=== PATIENT | female | born 1940 | race Caucasian/White ===

== ENCOUNTER 2017-03-31 11:38 | Emergency (ER) | payer MEDICARE ==
[2017-03-31 12:41] VITALS: BP 125/65
--- NOTE | 2017-03-31 13:51 | RAD ---
Indication: Right wrist injury 3 views of the wrist demonstrates no fracture. No other bone or joint abnormality is identified. Degenerative changes of the radiocarpal joint are noted. IMPRESSION: NO FRACTURE OF THE WRIST IS NOTED.
--- NOTE | 2017-03-31 13:54 | RAD ---
Indication: Right elbow pain. 4 views of the right elbow demonstrates a joint effusion. Anterior fat pad sign is noted. No definite fracture is noted. Osteophyte may be arising from the coronoid process. IMPRESSION: Question of osteophyte arising from the coronoid process.
--- NOTE | 2017-03-31 14:11 | RAD ---
Indication: RIGHT shoulder pain post fall. Comparison: No relevant prior exams available on the [facility] for comparison. Technique: Internal rotation AP, external rotation Grashey, scapular Y, axillary views RIGHT shoulder Report: Normal acromioclavicular and glenohumeral joint alignment. No fracture evident. Moderately severe acromioclavicular and glenohumeral joint osteophytosis with associated subchondral sclerosis at the glenohumeral joint. Large inferior acromial bone spur. Unremarkable soft tissue contours. IMPRESSION: Negative for fracture or malalignment. Osteoarthritis.
--- NOTE | 2017-03-31 14:56 | UC ---
Upper Extremity HPI - HPI Summary HPI Summary: TRIPPED ON RAMP 9:30 YESTERDAY. PAIN IN RIGHT WRIST. ALSO PAIN IN ELBOW AND SHOULDER. NO NECK PAIN. NO LOC. NO FACIAL INJURY. - History of Current Complaint Chief Complaint: UCUpperExtremity Stated Complaint: ARM INJURY Time Seen by Provider: 03/31/17 12:49 Hx Obtained From: Patient, Family/Administrative Services Director Onset/Duration: Sudden Onset, Lasting Hours, Still Present Severity Initially: Moderate Severity Currently: Mild Pain Intensity: 2 Pain Scale Used: 0-10 Numeric Location Of Pain: Is Discrete @ Character: Sharp Aggravating Factor(s): Movement Alleviating Factor(s): Nothing Associated Signs And Symptoms: Positive: Negative - Risk Factors Non-Orthopedic Risk Factor: Negative DVT Risk Factors: Negative Septic Arthritis Risk Factor: Negative - Allergies/Home Medications Allergies/Adverse Reactions: Allergies Allergy/AdvReac Type Severity Reaction Status Date / Time Clarithromycin [From Biaxin] Allergy Severe Swelling Verified 03/31/17 12:33 Diclofenac [From Arthrotec] Allergy Severe Swelling Verified 03/31/17 12:33 Misoprostol [From Arthrotec] Allergy Severe Swelling Verified 03/31/17 12:33 Polyethylene Glycol Allergy Severe Swelling Verified 03/31/17 12:33 [From MiraLax] Terbinafine and Related Allergy Severe Swelling Verified 03/31/17 12:33 Of Face,Lips,& Throat Iodinated Contrast Media Allergy Intermediate Hives Verified 03/31/17 12:33 [IV CONTRAST DYE] BEES Allergy Severe Swelling Uncoded 03/31/17 12:33 Of Face,Lips,& Throat PMH/Surg Hx/FS Hx/Imm Hx Previously Healthy: Yes - Surgical History Surgical History: Yes Surgery Procedure, Year, and Place: [place] [place] CHOLECYSTECTOM[place],BELLY BUTTON HERNIA,PARTIAL HYSTERECTOMY/[place] [place] [id number]. 2002-T[place] RIGHT [place] [place]IA [place] [facility] [place] 2004-INFECTED MESH-TOOK OUT SOME [place]ESH[place] [place]. 2009-TOTAL LEFT KNEE RE[place]ACEMENT[place] [place] - Family History Known Family History: Positive: Cardiac Disease - Social History Occupation: Retired Lives: With Family Alcohol Use: None Substance Use Type: None Smoking Status (MU): Never Smoked Tobacco Have You Smoked in the Last Year: No - Immunization History Most Recent Influenza Vaccination: 2016 Most Recent Tetanus Shot: UTD Most Recent Pneumonia Vaccination: 2014 Review of Systems Constitutional: Negative Skin: Negative Eyes: Negative ENT: Negative Respiratory: Negative Cardiovascular: Negative Gastrointestinal: Negative Genitourinary: Negative Motor: Negative Neurovascular: Negative Musculoskeletal: Arthralgia, Myalgia Neurological: Negative Psychological: Negative All Other Systems Reviewed And Are Negative: Yes Physical Exam Triage Information Reviewed: Yes Appearance: Well-Appearing, No Pain Distress, Well-Nourished, Obese Vital Signs: Initial Vital Signs Temp 98.3 F 03/31/17 12:35 Pulse 77 03/31/17 12:35 Resp 19 03/31/17 12:35 BP 125/65 03/31/17 12:35 Pulse Ox 98 03/31/17 12:35 Vital Signs Reviewed: Yes Eye Exam: Normal ENT Exam: Normal Dental Exam: Normal Neck exam: Normal Neck: Positive: Supple, Nontender, No Lymphadenopathy Respiratory Exam: Normal Respiratory: Positive: Chest non-tender, Lungs clear, Normal breath sounds, No respiratory distress, No accessory muscle use Cardiovascular Exam: Normal Cardiovascular: Positive: RRR, No Murmur, Pulses Normal Abdominal Exam: Normal Musculoskeletal: Positive: Strength Intact, ROM Intact, No Edema, Other: - PAIN RIGHT WRIST, ELBOW, SHOUDLER Neurological Exam: Normal Psychological Exam: Normal Skin Exam: Normal Upper Extremity Course/Dx - Differential Dx/Diagnosis Differential Diagnosis/HQI/PQRI: Fracture (Closed), Strain, Sprain Provider Diagnoses: RIGHT WRIST SPRAIN; RIGHT SHOUDLER CONTUSION, RIGHT SHOULDER PAIN Discharge - Discharge Plan Condition: Stable Disposition: HOME Patient Education Materials: Osteoarthritis (ED), Contusion in Adults (ED), Elbow Sprain (ED), Arthralgia (ED), Wrist Sprain (ED) Referrals: Orion Whitney MD [Medical Doctor] - Vicenta Ellison MD [Primary Care Provider] -
== END 2017-03-31 14:33 | disposition home or self-care (01) ==
LOC: UCEAST 11:38
DX: S63.501A Unspecified sprain of right wrist, initial encounter (principal); S40.011A Contusion of right shoulder, initial encounter; M25.511 Pain in right shoulder; W18.40XA Slipping, tripping and stumbling without falling, unspecified, initial encounter; Y93.9 Activity, unspecified; Y92.9 Unspecified place or not applicable; Y99.9 Unspecified external cause status
CPT/HCPCS: 99213; G0463

== ENCOUNTER 2018-02-19 13:54 | Emergency (ER) | payer MEDICARE ==
[2018-02-19 14:13] VITALS: BP 99/50
--- NOTE | 2018-02-19 15:25 | UC ---
Minor Trauma HPI - HPI Summary HPI Summary: 77 yo female tripped and fell forward about 48 hours ago She complains of right great foot pain She also hit her head (no LOC) but has no BUSH She injured her nose- no epistaxis bruise left hand has bilat knee replacements no knee pain - History of Current Complaint Chief Complaint: UCLowerExtremity Stated Complaint: FOOT AND HEAD INJURY Time Seen by Provider: 02/19/18 15:10 Hx Obtained From: Patient Onset/Duration: Sudden Onset Onset Of Pain: Immediate Severity Initially: Severe Severity Currently: Severe Pain Intensity: 10 - foot pain with with wt bearing Pain Scale Used: 0-10 Numeric Mechanism Of Injury: Fall From A Standing Position Aggravating Factor(s): Ambulation Alleviating Factor(s): Elevation, Ice, Rest Associated Signs And Symptoms: Positive: Ecchymosis, Swelling - Allergies/Home Medications Allergies/Adverse Reactions: Allergies Allergy/AdvReac Type Severity Reaction Status Date / Time clarithromycin [From Biaxin] Allergy Swelling Verified 02/19/18 14:15 diclofenac [From Arthrotec] Allergy Swelling Verified 02/19/18 14:16 iodine Allergy Swelling Verified 02/19/18 14:16 misoprostol [From Arthrotec] Allergy Swelling Verified 02/19/18 14:16 polyethylene glycol 3350 Allergy Swelling Verified 02/19/18 14:16 [From Miralax] PMH/Surg Hx/FS Hx/Imm Hx Previously Healthy: Yes Cardiovascular History: Hypertension Respiratory History: COPD, Bronchitis - Surgical History Surgical History: Yes Surgery Procedure, Year, and Place: 1968-TUBAL LIGATION[place] [place]. 1981 CHOLECYSTECTOMY,BELLY BUTTON HERNIA,PARTIAL HYSTERECTOMY/TOTAL HYSTERCTOMY[place] [place]. [id number]. 2002-TOTAL RIGHT KNEE REPLACEMNT[place] [place] RIGHT HIP REPLACED-. 2003-HERNIA REPAIR-[facility] [place]. 2004-INFECTED MESH-TOOK OUT SOME MESH-[facility] [place]. 2009-TOTAL LEFT KNEE REPLACEMENT[place] [place] - Family History Known Family History: Positive: Cardiac Disease, Hypertension - Social History Alcohol Use: None Substance Use Type: None Smoking Status (MU): Never Smoked Tobacco Have You Smoked in the Last Year: No - Immunization History Most Recent Influenza Vaccination: 2016 Most Recent Tetanus Shot: UTD Most Recent Pneumonia Vaccination: 2013 Review of Systems Constitutional: Negative Skin: Bruising Eyes: Negative ENT: Negative Respiratory: Negative Cardiovascular: Negative Gastrointestinal: Negative Genitourinary: Negative Motor: Negative Neurovascular: Negative Musculoskeletal: Arthralgia Neurological: Negative Psychological: Negative Is Patient Immunocompromised?: No All Other Systems Reviewed And Are Negative: Yes Physical Exam Triage Information Reviewed: Yes Appearance: Well-Appearing, No Pain Distress, Well-Nourished Vital Signs: Initial Vital Signs Temp 98.6 F 02/19/18 14:09 Pulse 76 02/19/18 14:09 Resp 18 02/19/18 14:09 BP 99/50 02/19/18 14:09 Pulse Ox 100 02/19/18 14:09 Vital Signs Reviewed: Yes Eyes: Positive: Conjunctiva Clear ENT: Positive: Hearing grossly normal, Uvula midline, Other - no obvious deformity of nose/no septal hematoma/ slight burising over bridge of nose. Negative: Nasal congestion, Nasal drainage, Tonsillar swelling, Tonsillar exudate, Trismus, Muffled voice, Hoarse voice Neck: Positive: Supple, Nontender, No Lymphadenopathy Respiratory: Positive: Lungs clear, Normal breath sounds, No respiratory distress, No accessory muscle use Cardiovascular: Positive: RRR, No Murmur Neurological: Positive: Alert Psychological Exam: Normal Diagnostics - Radiology No standard instances Xray Interpretation: Positive (See Comments) - POSSIBLE NONDISPLACED FRACTURE OF THE DISTAL FIFTH METATARSAL Radiology Interpretation Completed By: Radiologist Minor Trauma Course/Dx - Differential Dx/Diagnosis Provider Diagnoses: POSSIBLE NONDISPLACED FRACTURE OF THE DISTAL FIFTH METATARSAL of right foot Discharge - Sign-Out/Discharge Documenting (check all that apply): Discharge/Admit/Transfer - Discharge Plan Condition: Stable Disposition: HOME Patient Education Materials: Foot Fracture in Adults (ED) Referrals: Vicenta Ellison MD [Primary Care Provider] - Additional Instructions: Possible foot fracture (Distal 5th metacarpal) CAM boot see your orthopedist (Dr. Serna) - Billing Disposition and Condition Condition: STABLE Disposition: Home
--- NOTE | 2018-02-19 15:55 | RAD ---
INDICATION: Right foot injury. TECHNIQUE: 3 views of the right foot were obtained. FINDINGS: The bones appear osteopenic. There is diffuse soft tissue swelling with more focal soft tissue swelling adjacent to the fifth metatarsal phalangeal joint. There is mild cortical irregularity in the distal metaphysis of the fifth metatarsal possibly representing a nondisplaced fracture. No other fractures are seen. There are prominent calcified heel spurs and note is made of vascular calcifications. IMPRESSION: POSSIBLE NONDISPLACED FRACTURE OF THE DISTAL FIFTH METATARSAL RECOMMEND CLINICAL CORRELATION FOR POINT TENDERNESS.
== END 2018-02-19 16:25 | disposition home or self-care (01) ==
LOC: UCEAST 13:54
DX: M79.671 Pain in right foot (principal); S60.222A Contusion of left hand, initial encounter; I10 Essential (primary) hypertension; J44.9 Chronic obstructive pulmonary disease, unspecified; Z88.8 Allergy status to other drugs, medicaments and biological substances; Z88.1 Allergy status to other antibiotic agents; Z88.0 Allergy status to penicillin; W01.0XXA Fall on same level from slipping, tripping and stumbling without subsequent striking against object, initial encounter; Y92.9 Unspecified place or not applicable; Z96.653 Presence of artificial knee joint, bilateral
CPT/HCPCS: 99212; G0463

== ENCOUNTER 2018-07-13 09:05 | Emergency (ER) | payer MEDICARE ==
[2018-07-13] MEDS ORDERED: Albuterol/Ipratropium NEB.SOL* Albuterol 2.5 MG/Ipratropium 0.5 MG 3 ML INH ONE (10:06)
[2018-07-13 10:22] LABS: ABS Basophils 0.1 10^3/ul (0-0.2); ABS Eosinophils 0.3 10^3/ul (0-0.6); ABS Lymphocytes 1.7 10^3/ul (1.0-4.8); ABS Monocytes 0.7 10^3/ul (0-0.8); ABS Neutrophils 4.7 10^3/ul (1.5-7.7); ABS Nucleated RBC 0 10^3/ul; Eosinophil % 4.4 % (0-6); Hematocrit 44 % (35-47); Lymphocyte % 22.5 % (25-47); Mean Corpuscular HGB Conc 34 g/dl (31-36); Mean Corpuscular Hemoglobin 29 pg (27-31); Mean Corpuscular Volume 86 fL (80-97); Mean Platelet Volume 7.8 fL (7.4-10.4); Nucleated Red Blood Cells % 0.1; Platelet Count 207 10^3/ul (150-450); Red Blood Count 5.09 10^6/ul (4.00-5.40); Red Cell Distribution Width 14 % (10.5-15); White Blood Count 7.4 10^3/ul (3.5-10.8)
[2018-07-13 10:29] LABS: INR 1.03 (0.77-1.02)
[2018-07-13 10:51] LABS: Urine Appearance Cloudy; Urine Blood Negative (Negative); Urine Color Yellow; Urine Ketones Negative (Negative); Urine Protein Negative (Negative); Urine Specific Gravity 1.013 (1.010-1.030); Urine Urobilinogen Negative (Negative)
--- NOTE | 2018-07-13 13:12 | ED ---
Shortness of Breath - HPI Summary HPI Summary: Patient is a 78-year-old female with a history of COPD presenting to the ED with worsening shortness of breath over the past few days. She states she had these episodes 4 weeks ago and was placed on antibiotics. She subsequently had a UTI and was placed on another short course of antibiotics 5 days. She states she felt somewhat better but then declined again over the past few days. She states she would not come in, however she was at the wound clinic this morning and the wound clinic sent her here after hearing a productive cough. She does endorse a productive cough of the past few days with green and yellow sputum. She endorses shortness of breath only with exertion. She states she has shortness of breath at baseline, but notices this has been worse. Denies any fevers, sweats, chills. Denies any chest pain, back pain, abdominal pain, or urinary symptoms at this time. She states she's been continuing on her at home COPD medications which have been helping. On arrival her oxygen sat is 94% . - History of Current Complaint Chief Complaint: EDShortnessOfBreath Time Seen by Provider: 07/13/18 09:21 Hx Obtained From: Patient Onset/Duration: Sudden Onset Timing: Constant Current Severity: Moderate Dyspnea At: Exertion Aggrevating Factors: Movement Alleviating Factors: Bronchodilators, EMS Tx, Oxygen - Allergy/Home Medications Allergies/Adverse Reactions: Allergies Allergy/AdvReac Type Severity Reaction Status Date / Time clarithromycin [From Biaxin] Allergy Swelling Verified 07/13/18 09:12 diclofenac [From Arthrotec] Allergy Swelling Verified 07/13/18 09:12 iodine Allergy Swelling Verified 07/13/18 09:12 misoprostol [From Arthrotec] Allergy Swelling Verified 07/13/18 09:12 polyethylene glycol 3350 Allergy Swelling Verified 07/13/18 09:12 [From Miralax] seafood Allergy Rash Uncoded 07/13/18 09:12 Home Medications: Home Medications Acetaminophen TAB* [Tylenol TAB*] 325 mg PO Q4H PRN 07/13/18 [History Confirmed 07/13/18] Ascorbic Acid TAB* [Vitamin C TAB*] 1,000 mg PO DAILY 07/13/18 [History Confirmed 07/13/18] Budesonide/Formote 160/4.5(NF) [Symbicort 160/4.5 (NF)] 1 puff INH BID 07/13/18 [History Confirmed 07/13/18] Calcium Carbonate/Vitamin D3 [Calcium 1000 + D] 1 tab PO DAILY 07/13/18 [ History Confirmed 07/13/18] Calcium Polycarbophil TAB* [Fibercon TAB*] 625 mg PO DAILY 07/13/18 [History Confirmed 07/13/18] Clotrimazole/Betamethasone* [Lotrisone Cream*] 1 applic TOPICAL BID PRN [History Confirmed 07/13/18] Ibuprofen TAB* [Advil TAB*] 400 mg PO DAILY PRN 07/13/18 [History Confirmed 01/23] Ipratropium 0.5MG/2.5ML NEB* [Atrovent 0.5 MG NEB.VEDA*] 0.5 mg INH Q6H PRN 07/13 [History Confirmed 07/13/18] Lactobacillus Acidophilus [Acidophilus Lactobacillus] 1 cap PO DAILY 07/13/18 [ History Confirmed 07/13/18] Multivitamins/Minerals TAB* [Theragran/minerals TAB*] 1 tab PO DAILY 07/13/18 [ History Confirmed 07/13/18] [place]-3 Fatty Acids (Nf) [Fish Oil (NF)] 1,000 mg PO DAILY 07/13/18 [History Confirmed 07/13/18] Omeprazole CAP* [Prilosec CAP* 20 MG] 20 mg PO DAILY 07/13/18 [History Confirmed 07/13/18] Vitamin B Complex CAP* [B Complex CAP*] 1 cap PO DAILY 07/13/18 [History Confirmed 07/13/18] guaiFENesin ER TAB [Mucinex*] 600 mg PO BID PRN 07/13/18 [History Confirmed 01/23] PMH/Surg Hx/FS Hx/Imm Hx Previously Healthy: Yes Endocrine/Hematology History: Denies: Hx Diabetes, Hx Thyroid Disease Cardiovascular History: Reports: Hx Hypertension Respiratory History: Reports: Hx Asthma, Hx Sleep Apnea - ? Denies: Hx Chronic Obstructive Pulmonary Disease (COPD) GI History: Reports: Hx Gastroesophageal Reflux Disease, Hx Irritable Bowel, Other GI Disorders - UMBILICAL HERNIA Denies: Hx Ulcer History: Denies: Hx Renal Disease Musculoskeletal History: Reports: Hx Arthritis - GENERALIZED OSTEOARTHRITIS, Hx Tendonitis - BILAT. HANDS Denies: Hx Rheumatoid Arthritis Sensory History: Reports: Hx Cataracts - REMOVED, Hx Contacts or Glasses Denies: Hx Hearing Aid Opthamlomology History: Reports: Hx Cataracts - REMOVED, Hx Contacts or Glasses Psychiatric History: Denies: Hx Anxiety, Hx Attention Deficit Hyperactivity Disorder, Hx Eating Disorder, Hx Depression, Hx Panic Disorder, Hx Post Traumatic Stress Disorder, Hx Inpatient Treatment, Hx Schizophrenia, Hx Bipolar Disorder, Hx Suicide Attempt, Hx of Violent Episodes Against Others, Hx Substance Abuse, Other Psychiatric Issues/Disorders - Surgical History Surgery Procedure, Year, and Place: 1968-[place] [place] [facility] [place] CHOLECYSTECTOMY,BELLY BUTTON HERNIA,PARTIAL HYSTERECTOMY/TOTAL HYSTERCTOMY[place] [place] [facility] [place]. [id number]. 2002-TOTAL RIGHT KNEE REPLACEMNT[place] [place] [facility] [place]-. 2003-HERNIA REPAIR[place] [place] [facility] [place]. 2004-INFECTED MESH-TOOK OUT SOME MESH-[facility] [place] [facility] [place]. 2009-TOTAL LEFT KNEE REPLACEMENT[place] [place] [facility] [place] Hx Anesthesia Reactions: No - Immunization History Hx Pertussis Vaccination: No Immunizations Up to Date: Yes Infectious Disease History: No Infectious Disease History: Denies: Hx Clostridium Difficile, Hx Hepatitis, Hx Human Immunodeficiency Virus (HIV), Hx Shingles, Hx Tuberculosis, Hx Known/Suspected VRE, Hx Known/ Suspected VRSA, History Other Infectious Disease, Traveled Outside the [place] in Last 30 Days - Family History Known Family History: Positive: Cardiac Disease, Hypertension - Social History Occupation: Unemployed Lives: With Family Alcohol Use: Rare Hx Substance Use: No Substance Use Type: Reports: None Hx Tobacco Use: No Smoking Status (MU): Never Smoked Tobacco Have You Smoked in the Last Year: No Review of Systems Constitutional: Negative Negative: Fever, Chills, Fatigue, Skin Diaphoresis Negative: Palpitations, Chest Pain Positive: Shortness Of Breath, Cough - with production Negative: Abdominal Pain, Vomiting, Diarrhea, Nausea Genitourinary: Negative Positive: no symptoms reported, see HPI Negative: Rash, Bruising Negative: Headache Psychological: Normal All Other Systems Reviewed And Are Negative: Yes Physical Exam Triage Information Reviewed: Yes Vital Signs On Initial Exam: Initial Vitals Temp Pulse Resp BP Pulse Ox 97.8 F 74 16 88/43 94 07/13/18 09:06 07/13/18 09:06 07/13/18 09:06 07/13/18 09:06 07/13/18 09:06 Vital Signs Reviewed: Yes Appearance: Positive: Well-Appearing, Well-Nourished Skin: Positive: Skin Color Reflects Adequate Perfusion Head/Face: Positive: Normal Head/Face Inspection Eyes: Positive: Normal, RENA, Conjunctiva Clear Neck: Positive: Supple, No Lymphadenopathy Respiratory/Lung Sounds: Positive: Rhonchi - bilateral lower lung bases - cough with production - green and yellow sputum Cardiovascular: Positive: RRR, Pulses are Symmetrical in both Upper and Lower Extremities Musculoskeletal: Positive: Normal, Strength/ROM Intact Neurological: Positive: Sensory/Motor Intact, Alert, Oriented to Person Place, Time, Speech Normal Psychiatric: Positive: Normal, Affect/Mood Appropriate AVPU Assessment: Alert Diagnostics - Vital Signs Vital Signs Temp Pulse Resp BP Pulse Ox 07/13/18 12:27 84 20 131/43 93 07/13/18 11:56 92 22 119/56 91 07/13/18 11:26 98 16 131/60 93 07/13/18 11:00 96 21 91 07/13/18 10:56 83 24 118/58 93 07/13/18 10:33 86 21 127/59 94 07/13/18 10:26 78 25 108/41 93 07/13/18 10:17 75 14 94 07/13/18 09:56 78 23 104/54 91 07/13/18 09:26 72 21 111/57 96 07/13/18 09:23 68 95 07/13/18 09:06 97.8 F 74 16 88/43 94 - Laboratory Lab Results: Lab Results 07/13/18 07/13/18 07/13/18 Range/Units 10:15 10:15 10:15 WBC 7.4 (3.5-10.8) 10^3/ul RBC 5.09 (4.00-5.40) 10^6/ul Hgb 15.0 (12.0-16.0) g/dl Hct 44 (35-47) % MCV 86 (80-97) fL MCH 29 (27-31) pg MCHC 34 (31-36) g/dl RDW 14 (10.5-15) % Plt Count 207 (150-450) 10^3/ul MPV 7.8 (7.4-10.4) fL Neut % (Auto) 63.2 (38-83) % Lymph % (Auto) 22.5 L (25-47) % [place] % (Auto) 9.1 H (0-7) % Eos % (Auto) 4.4 (0-6) % Baso % (Auto) 0.8 (0-2) % Absolute Neuts (auto) 4.7 (1.5-7.7) 10^3/ul Absolute Lymphs (auto) 1.7 (1.0-4.8) 10^3/ul Absolute Monos (auto) 0.7 (0-0.8) 10^3/ul Absolute Eos (auto) 0.3 (0-0.6) 10^3/ul Absolute Basos (auto) 0.1 (0-0.2) 10^3/ul Absolute Nucleated RBC 0 10^3/ul Nucleated RBC % 0.1 INR (Anticoag Therapy) 1.03 H (0.77-1.02) Sodium 138 (135-145) mmol/L Potassium 3.5 (3.5-5.0) mmol/L Chloride 103 (101-111) mmol/L Carbon Dioxide 27 (22-32) mmol/L Anion Gap 8 (2-11) mmol/L BUN 13 (6-24) mg/dL Creatinine 0.76 (0.51-0.95) mg/dL Est GFR ( Amer) 89.5 (>60) Est GFR (Non-Af Amer) 74.0 (>60) BUN/Creatinine Ratio 17.1 (8-20) Glucose 112 H (70-100) mg/dL Lactic Acid (0.5-2.0) mmol/L Calcium 9.0 (8.6-10.3) mg/dL Total Bilirubin 0.60 (0.2-1.0) mg/dL AST 20 (13-39) U/L ALT 15 (7-52) U/L Alkaline Phosphatase 79 (34-104) U/L CK-MB (CK-2) 1.9 (0.6-6.3) ng/mL Troponin I 0.12 H* (<0.04) ng/mL C-Reactive Protein 19.01 H (<8.01) mg/L B-Natriuretic Peptide (<=100) pg/mL Total Protein 7.1 (6.4-8.9) g/dL Albumin 3.5 (3.2-5.2) g/dL Globulin 3.6 (2-4) g/dL Albumin/Globulin Ratio 1.0 (1-3) Urine Color Urine Appearance Urine pH (5-9) Ur Specific [place] (1.010-1.030) Urine Protein (Negative) Urine Ketones (Negative) Urine Blood (Negative) Urine Nitrate (Negative) Urine Bilirubin (Negative) Urine Urobilinogen (Negative) Ur Leukocyte Esterase (Negative) Urine Glucose (Negative) Urine Ascorbic Acid (Negative) 07/13/18 07/13/18 07/13/18 Range/Units 10:15 10:15 10:36 WBC (3.5-10.8) 10^3/ul RBC (4.00-5.40) 10^6/ul Hgb (12.0-16.0) g/dl Hct (35-47) % MCV (80-97) fL MCH (27-31) pg MCHC (31-36) g/dl RDW (10.5-15) % Plt Count (150-450) 10^3/ul MPV (7.4-10.4) fL Neut % (Auto) (38-83) % Lymph % (Auto) (25-47) % [place] % (Auto) (0-7) % Eos % (Auto) (0-6) % Baso % (Auto) (0-2) % Absolute Neuts (auto) (1.5-7.7) 10^3/ul Absolute Lymphs (auto) (1.0-4.8) 10^3/ul Absolute Monos (auto) (0-0.8) 10^3/ul Absolute Eos (auto) (0-0.6) 10^3/ul Absolute Basos (auto) (0-0.2) 10^3/ul Absolute Nucleated RBC 10^3/ul Nucleated RBC % INR (Anticoag Therapy) (0.77-1.02) Sodium (135-145) mmol/L Potassium (3.5-5.0) mmol/L Chloride (101-111) mmol/L Carbon Dioxide (22-32) mmol/L Anion Gap (2-11) mmol/L BUN (6-24) mg/dL Creatinine (0.51-0.95) mg/dL Est GFR ( Amer) (>60) Est GFR (Non-Af Amer) (>60) BUN/Creatinine Ratio (8-20) Glucose (70-100) mg/dL Lactic Acid 0.8 (0.5-2.0) mmol/L Calcium (8.6-10.3) mg/dL Total Bilirubin (0.2-1.0) mg/dL AST (13-39) U/L ALT (7-52) U/L Alkaline Phosphatase (34-104) U/L CK-MB (CK-2) (0.6-6.3) ng/mL Troponin I (<0.04) ng/mL C-Reactive Protein (<8.01) mg/L B-Natriuretic Peptide 22 (<=100) pg/mL Total Protein (6.4-8.9) g/dL Albumin (3.2-5.2) g/dL Globulin (2-4) g/dL Albumin/Globulin Ratio (1-3) Urine Color Yellow Urine Appearance Cloudy Urine pH 6.0 (5-9) Ur Specific [place] 1.013 (1.010-1.030) Urine Protein Negative (Negative) Urine Ketones Negative (Negative) Urine Blood Negative (Negative) Urine Nitrate Negative (Negative) Urine Bilirubin Negative (Negative) Urine Urobilinogen Negative (Negative) Ur Leukocyte Esterase Negative (Negative) Urine Glucose Negative (Negative) Urine Ascorbic Acid * A (Negative) 07/13/18 Range/Units 12:05 WBC (3.5-10.8) 10^3/ul RBC (4.00-5.40) 10^6/ul Hgb (12.0-16.0) g/dl Hct (35-47) % MCV (80-97) fL MCH (27-31) pg MCHC (31-36) g/dl RDW (10.5-15) % Plt Count (150-450) 10^3/ul MPV (7.4-10.4) fL Neut % (Auto) (38-83) % Lymph % (Auto) (25-47) % [place] % (Auto) (0-7) % Eos % (Auto) (0-6) % Baso % (Auto) (0-2) % Absolute Neuts (auto) (1.5-7.7) 10^3/ul Absolute Lymphs (auto) (1.0-4.8) 10^3/ul Absolute Monos (auto) (0-0.8) 10^3/ul Absolute Eos (auto) (0-0.6) 10^3/ul Absolute Basos (auto) (0-0.2) 10^3/ul Absolute Nucleated RBC 10^3/ul Nucleated RBC % INR (Anticoag Therapy) (0.77-1.02) Sodium (135-145) mmol/L Potassium (3.5-5.0) mmol/L Chloride (101-111) mmol/L Carbon Dioxide (22-32) mmol/L Anion Gap (2-11) mmol/L BUN (6-24) mg/dL Creatinine (0.51-0.95) mg/dL Est GFR ( Amer) (>60) Est GFR (Non-Af Amer) (>60) BUN/Creatinine Ratio (8-20) Glucose (70-100) mg/dL Lactic Acid (0.5-2.0) mmol/L Calcium (8.6-10.3) mg/dL Total Bilirubin (0.2-1.0) mg/dL AST (13-39) U/L ALT (7-52) U/L Alkaline Phosphatase (34-104) U/L CK-MB (CK-2) (0.6-6.3) ng/mL Troponin I 0.00 (<0.04) ng/mL C-Reactive Protein (<8.01) mg/L B-Natriuretic Peptide (<=100) pg/mL Total Protein (6.4-8.9) g/dL Albumin (3.2-5.2) g/dL Globulin (2-4) g/dL Albumin/Globulin Ratio (1-3) Urine Color Urine Appearance Urine pH (5-9) Ur Specific [place] (1.010-1.030) Urine Protein (Negative) Urine Ketones (Negative) Urine Blood (Negative) Urine Nitrate (Negative) Urine Bilirubin (Negative) Urine Urobilinogen (Negative) Ur Leukocyte Esterase (Negative) Urine Glucose (Negative) Urine Ascorbic Acid (Negative) Result Diagrams: 07/13/18 10:15 07/13/18 10:15 Lab Statement: Any lab studies that have been ordered have been reviewed, and results considered in the medical decision making process. Course/Dx - Course Course Of Treatment: During course treatment, the patient is evaluated for shortness of breath. She denies any chest pain. On physical examination, patient appears well, with no accessory muscle use and no difficulty work of breathing. Labs obtained which show an elevated troponin of 0.12. This likely secondary to her COPD exacerbation. Secondary troponin obtained which is 0.00. Vital signs are stable, however with a slightly soft blood pressure. She states normally her blood pressure is WNL. She states she is also not had anything to eat or drink all day and is somewhat fatigued. She is given a nebulizer treatment with good relief. Discussed treatment options with patient , and if she feels comfortable going home. She states she is comfortable going home. She understands strict return precautions and will return if she develops any fevers, sweats, chills, worsening shortness of breath. In the meantime she is given cefuroxime to cover COPD/bronchitis symptoms and she is high risk as well as prednisone 50 mg once daily 5 days. She will follow-up with her PCP in 2 days. D/t elevated troponin, discussed case with Dr. Oleary who agrees to go see patient. He is agreeable to patient's discharge as well. - Diagnoses Differential Diagnosis/HQI/PQRI: Positive: Bronchitis, Pneumonia Provider Diagnoses: COPD exacerbation Discharge - Sign-Out/Discharge Documenting (check all that apply): Patient Departure - Discharge Plan Condition: Stable Disposition: HOME Prescriptions: ceFUROXime TAB(*) [Ceftin TAB 250 MG(*)] 500 mg PO BID #14 tab Patient Education Materials: COPD (Chronic Obstructive Pulmonary Disease) (ED) Referrals: Vicenta Ellison MD [Primary Care Provider] - Additional Instructions: Please follow up with PCP in 2-3 days Continue your at home medications as prescribed Prednisone once daily in the morning x 5 days Cefuroxime twice daily x 7 days - Billing Disposition and Condition Condition: STABLE Disposition: Home
[2018-07-13 13:15] VITALS: BP 104/56
== END 2018-07-13 13:17 | disposition home or self-care (01) ==
LOC: ED 09:05
DX: J44.1 Chronic obstructive pulmonary disease with (acute) exacerbation (principal); I10 Essential (primary) hypertension; K21.9 Gastro-esophageal reflux disease without esophagitis; M15.9 Polyosteoarthritis, unspecified
CPT/HCPCS: 36415; 71046; 80053; 81003; 82553; 83605; 83880; 84484; 85025; 85610; 86140; 93005; 99283; A9270-GY

== ENCOUNTER 2019-03-18 16:30 | Emergency (ER) | payer MEDICARE ==
[2019-03-18 17:12] VITALS: BP 120/62
--- NOTE | 2019-03-18 17:57 | UC ---
Respiratory Complaint HPI - HPI Summary HPI Summary: History of COPD, uses Symbicort and Spiriva, and has overnight oxygen. Aware of increasing dyspnea x several weeks, treated with amoxicillin on 03/05 for suspected sinusitis. Had a 10 day course of tapring steroids. Reassessed by Asthma an Allergy last week; advised lab screening for diabetes which was negative. Home is not air conditioned; has had increasing productive cough with left inspiratory chest pain for the past several days. - History of Current Complaint Chief Complaint: UCRespiratory Stated Complaint: COUGH Time Seen by Provider: 03/18/19 17:51 Hx Obtained From: Patient Hx Last Menstrual Period: post Onset/Duration: Gradual Onset Severity Initially: Moderate Severity Currently: Moderate Pain Intensity: 1 Alleviating Factors: Bronchodilator - uses albuterol MDI, none used today Associated Signs And Symptoms: Positive: Dyspnea, Pleuritic Chest Pain, Wheezing , Sinus Discomfort - Risk Factors Pulmonary Embolism Risk Factors: Negative Cardiac Risk Factors: Hypertension Pseudomonas Risk Factors: Negative Tuberculosis Risk Factors: Negative - Allergies/Home Medications Allergies/Adverse Reactions: Allergies Allergy/AdvReac Type Severity Reaction Status Date / Time azithromycin [From Zithromax] Allergy Severe anaphylaxis Verified 03/18/19 17:16 terbinafine Allergy Severe anaphylaxis Verified 03/18/19 17:16 clarithromycin [From Biaxin] Allergy Swelling Verified 03/18/19 17:16 diclofenac [From Arthrotec] Allergy Swelling Verified 03/18/19 17:16 iodine Allergy Swelling Verified 03/18/19 17:16 misoprostol [From Arthrotec] Allergy Swelling Verified 03/18/19 17:16 polyethylene glycol 3350 Allergy Swelling Verified 03/18/19 17:16 [From Miralax] seafood Allergy Rash Uncoded 03/18/19 17:16 Home Medications: Home Medications Docusate CAP* [Colace Cap*] 1 tab PO DAILY 03/18/19 [History Confirmed 03/18/19] Oxybutynin TAB* [Ditropan TAB*] 1 tab PO DAILY 03/18/19 [History Confirmed 03/18] traMADol TAB* [Ultram*] 50 mg PO Q6HR PRN 03/18/19 [History Confirmed 03/18/19] PMH/Surg Hx/FS Hx/Imm Hx Respiratory History: COPD - Surgical History Surgical History: Yes Surgery Procedure, Year, and Place: 1968[place] [place]. [place] CHOLECYSTECTOMY,BELLY BUTTON HERNIA,PARTIAL HYSTERECTOMY/TOTAL HYSTERCTOMY-[facility] [place]. [id number]. 2002-TOTAL RIGHT KNEE REPLACEMNT[place] [place]PL[place]ED-. 2003-HERNIA REPAIR-[facility] [place]. 2004-INFECTED MESH-TOOK OUT SOME MESH-[facility] [place]. 2009-TOTAL LEFT KNEE REPLACEMENT[place] [place] - Family History Known Family History: Positive: Cardiac Disease, Hypertension - Social History Alcohol Use: Rare Substance Use Type: None Smoking Status (MU): Never Smoked Tobacco Have You Smoked in the Last Year: No - Immunization History Most Recent Influenza Vaccination: 2016 Most Recent Tetanus Shot: UTD Most Recent Pneumonia Vaccination: 2013 Review of Systems All Other Systems Reviewed And Are Negative: Yes Constitutional: Positive: Fatigue Skin: Positive: Negative Respiratory: Positive: Shortness Of Breath, Cough Genitourinary: Positive: Negative Motor: Positive: Negative Musculoskeletal: Positive: Negative Neurological: Positive: Negative Physical Exam Triage Information Reviewed: Yes Appearance: No Pain Distress, Ill-Appearing, Obese Vital Signs: Initial Vital Signs Temp 99 F 03/18/19 17:07 Pulse 73 03/18/19 17:07 Resp 16 03/18/19 17:07 BP 120/62 03/18/19 17:07 Pulse Ox 93 03/18/19 17:07 ENT: Positive: Pharynx normal, TMs normal Neck: Positive: Supple, Nontender, No Lymphadenopathy Respiratory: Positive: Decreased breath sounds - marked decrease in air entry., Wheezing - prolonged expiration and Cardiovascular: Positive: RRR, No Murmur Neurological Exam: Normal Neurological: Positive: Alert, Muscle Tone Normal Psychological Exam: Normal Skin Exam: Normal Diagnostics - Radiology No standard instances Radiology Interpretation Completed By: ED Physician Summary of Radiographic Findings: poor inspiratory effort, no consolidation. Respiratory Course/Dx - Course Course Of Treatment: solumedrol, begin course of cephalexin, follow up prn. - Differential Dx/Diagnosis Differential Diagnosis/HQI/PQRI: Bronchitis, CHF, Lower Resp Infection Provider Diagnosis: COPD exacerbation Discharge - Sign-Out/Discharge Documenting (check all that apply): Patient Departure All imaging exams completed and their final reports reviewed: No - Discharge Plan Condition: Stable Disposition: HOME Prescriptions: Cephalexin CAP* [Keflex 500 CAP*] 500 mg PO TID #21 cap Patient Education Materials: COPD (Chronic Obstructive Pulmonary Disease) (ED) Referrals: Vicenta Ellison MD [Primary Care Provider] - Additional Instructions: You have been given solumedrol 125mg as a steroid injection to help your breathing. Continue use of Symbicort, Spiriva and albutterol rescue inhaler, as well as oxygen at night. Begin cephalexin as an antibiotic for suspected bronchitis. I suggest that you check about getting an air conditioner through the HEAP program. Follow up in the emergency room if you have continued difficulty breathing. - Billing Disposition and Condition Condition: STABLE Disposition: Home
[2019-03-18] MEDS: Levalbuterol 0.63MG/3ML NEB* UNIT OF USE INH ONE (18:09)
[2019-03-18] MEDS: methylPREDNISolone 125 MG* 2 ML VIAL IM ONE (18:54)
== END 2019-03-18 19:25 | disposition home or self-care (01) ==
LOC: UCEAST 16:30
DX: J44.1 Chronic obstructive pulmonary disease with (acute) exacerbation (principal)
CPT/HCPCS: 71046; 96372; 99212; G0463; J2930

== ENCOUNTER 2019-10-30 17:24 | Emergency (ER) | payer MEDICARE ==
[2019-10-30 18:02] LABS: Urine Appearance Clear; Urine Bilirubin Negative (Negative); Urine Blood Negative (Negative); Urine Color Yellow; Urine Glucose Negative (Negative); Urine Ketones Negative (Negative); Urine Nitrite Negative (Negative); Urine Protein Negative (Negative); Urine Specific Gravity 1.002 (1.010-1.030); Urine Urobilinogen Negative (Negative)
[2019-10-30 18:03] LABS: Urine Bacteria Absent (Absent); Urine Red Blood Cell Trace(0-2/hpf) (Absent); Urine White Blood Cell 1+(6-10/hpf) (Absent)
[2019-10-30] MEDS ORDERED: Lidocaine 1% MPF ** 5 ML VIAL IM ONE (18:25)
[2019-10-30] MEDS ORDERED: cefTRIAXone VIAL(*) 1,000 MG VIAL IM ONE (18:25)
[2019-10-30 18:44] LABS: ABS Basophils 0.1 10^3/ul (0-0.2); ABS Eosinophils 0.2 10^3/ul (0-0.6); ABS Lymphocytes 1.7 10^3/ul (1.0-4.8); ABS Monocytes 0.5 10^3/ul (0-0.8); ABS Neutrophils 4.7 10^3/ul (1.5-7.7); Eosinophil % 3.3 %; Hematocrit 41 % (35-47); Hemoglobin 14.5 g/dL (12.0-16.0); Lymphocyte % 23.4 %; Mean Corpuscular HGB Conc 35 g/dL (31-36); Mean Corpuscular Hemoglobin 31 pg (27-31); Mean Corpuscular Volume 87 fL (80-97); Mean Platelet Volume 8.2 fL (7.4-10.4); Platelet Count 173 10^3/uL (150-450); Red Cell Distribution Width 14 % (10-15); White Blood Count 7.1 10^3/uL (3.5-10.8)
[2019-10-30 18:59] LABS: BUN/Creatinine Ratio 17.5 (8-20); Calcium 9.4 mg/dL (8.6-10.3); EGFR African American 84.2 (>60); EGFR Non-African American 69.6 (>60); Potassium 3.8 mmol/L (3.5-5.0)
[2019-10-30 20:11] VITALS: BP 118/61
--- NOTE | 2019-10-30 21:09 | ED ---
GI/ HPI - HPI Summary HPI Summary: Patient is a 79 y/o F presenting to [facility] with complaints of lower right back pain and increased urgency to urinate. Sx have been present for the past few days. Fever, N/V, abdominal pain, hematuria are denied. She notes Hx of UTIs and kidney infections. Patient reports that this presentation is similar to prior episodes of UTIs. However, the back pain is more severe with this current episode. She notes that she has been treated with Keflex for prior UTIs. Patient has Hx of ventral hernia and wears a binder for this. Legs are swollen, but the patient attributes this to her lymphedema. No Hx of kidney stones noted. Home medications and allergies are reviewed. Home Medications Medication Instructions Recorded Confirmed Type Spironolactone/HCTZ 25-25 MG* 1 tab PO DAILY 04/03/16 03/18/19 History [Aldactazide 25-25*] Cetirizine* [ZyrTEC*] 10 mg PO DAILY PRN 08/09/16 03/18/19 History Acetaminophen TAB* [Tylenol TAB*] 325 mg PO Q4H PRN 07/13/18 03/18/19 History Ascorbic Acid TAB* [Vitamin C 1,000 mg PO DAILY 07/13/18 03/18/19 History TAB*] Budesonide/Formote 160/4.5(NF) 1 puff INH BID 07/13/18 03/18/19 History [Symbicort 160/4.5 (NF)] Calcium Carbonate/Vitamin D3 1 tab PO DAILY 07/13/18 03/18/19 History [Calcium 1000 + D] Calcium Polycarbophil TAB* 625 mg PO DAILY 07/13/18 03/18/19 History [Fibercon TAB*] Clotrimazole/Betamethasone* 1 applic TOPICAL BID PRN 07/13/18 03/18/19 History [Lotrisone Cream*] Ibuprofen TAB* [Advil TAB*] 400 mg PO DAILY PRN 07/13/18 03/18/19 History Ipratropium 0.5MG/2.5ML NEB* 0.5 mg INH Q6H PRN 07/13/18 03/18/19 History [Atrovent 0.5 MG NEB.VEDA*] Lactobacillus Acidophilus 1 cap PO DAILY 07/13/18 03/18/19 History [Acidophilus Lactobacillus] Multivitamins/Minerals TAB* 1 tab PO DAILY 07/13/18 03/18/19 History [Theragran/minerals TAB*] [place]-3 Fatty Acids (Nf) [Fish Oil 1,000 mg PO DAILY 07/13/18 03/18/19 History (NF)] Vitamin B Complex CAP* [B Complex 1 cap PO DAILY 07/13/18 03/18/19 History CAP*] Docusate CAP* [Colace Cap*] 1 tab PO DAILY 03/18/19 03/18/19 History Oxybutynin TAB* [Ditropan TAB*] 1 tab PO DAILY 03/18/19 03/18/19 History Cephalexin CAP* [Keflex CAP*] 500 mg PO TID 7 Days #21 cap 10/30/19 Rx guaiFENesin [Mucinex] 600 mg PO BID 10/30/19 10/30/19 History - History of Current Complaint Chief Complaint: EDUrogenitalProblems Time Seen by Provider: 10/30/19 18:16 Stated Complaint: POSS UTI PER PT Hx Obtained From: Patient Hx Last Menstrual Period: post Onset/Duration: Started Days Ago, Still Present Timing: Lasting Days Pain Intensity: 0 Location of Pain: Other - back Associated Signs and Symptoms: Positive: Back Pain, UTI Symptoms - urgency of urination. Negative: Nausea, Vomiting, Fever, Hematuria, Abdominal Pain - Additional Pertinent History Primary Care Physician: [id number] - Allergy/Home Medications Allergies/Adverse Reactions: Allergies Allergy/AdvReac Type Severity Reaction Status Date / Time azithromycin [From Zithromax] Allergy Severe anaphylaxis Verified 10/30/19 17:46 terbinafine Allergy Severe anaphylaxis Verified 10/30/19 17:46 Gadolinium-Containing Allergy Mild PT STATES Verified 10/30/19 17:46 Contrast Medi - RED WARM FACE * EARS clarithromycin [From Biaxin] Allergy Swelling Verified 10/30/19 17:46 diclofenac [From Arthrotec] Allergy Swelling Verified 10/30/19 17:46 iodine Allergy Swelling Verified 10/30/19 17:46 misoprostol [From Arthrotec] Allergy Swelling Verified 10/30/19 17:46 polyethylene glycol 3350 Allergy Swelling Verified 10/30/19 17:46 [From Miralax] seafood Allergy Rash Uncoded 06/02/19 12:36 Home Medications: Home Medications Spironolactone/HCTZ 25-25 MG* [Aldactazide 25-25*] 1 tab PO DAILY 04/03/16 [ History Confirmed 10/30/19] Cetirizine* [ZyrTEC*] 10 mg PO DAILY PRN 08/09/16 [History Confirmed 10/30/19] Acetaminophen TAB* [Tylenol TAB*] 325 mg PO Q4H PRN 07/13/18 [History Confirmed 10/30/19] Ascorbic Acid TAB* [Vitamin C TAB*] 1,000 mg PO DAILY 07/13/18 [History Confirmed 10/30/19] Budesonide/Formote 160/4.5(NF) [Symbicort 160/4.5 (NF)] 1 puff INH BID 07/13/18 [History Confirmed 10/30/19] Calcium Carbonate/Vitamin D3 [Calcium 1000 + D] 1 tab PO DAILY 07/13/18 [ History Confirmed 10/30/19] Calcium Polycarbophil TAB* [Fibercon TAB*] 625 mg PO DAILY 07/13/18 [History Confirmed 10/30/19] Clotrimazole/Betamethasone* [Lotrisone Cream*] 1 applic TOPICAL BID PRN [History Confirmed 10/30/19] Ibuprofen TAB* [Advil TAB*] 400 mg PO DAILY PRN 07/13/18 [History Confirmed ] Ipratropium 0.5MG/2.5ML NEB* [Atrovent 0.5 MG NEB.VEDA*] 0.5 mg INH Q6H PRN 07/13 [History Confirmed 10/30/19] Lactobacillus Acidophilus [Acidophilus Lactobacillus] 1 cap PO DAILY 07/13/18 [ History Confirmed 10/30/19] Multivitamins/Minerals TAB* [Theragran/minerals TAB*] 1 tab PO DAILY 07/13/18 [ History Confirmed 10/30/19] [place]-3 Fatty Acids (Nf) [Fish Oil (NF)] 1,000 mg PO DAILY 07/13/18 [History Confirmed 10/30/19] Vitamin B Complex CAP* [B Complex CAP*] 1 cap PO DAILY 07/13/18 [History Confirmed 10/30/19] Docusate CAP* [Colace Cap*] 1 tab PO DAILY 03/18/19 [History Confirmed 10/30/19] Oxybutynin TAB* [Ditropan TAB*] 1 tab PO DAILY 03/18/19 [History Confirmed 10/30] Cephalexin CAP* [Keflex CAP*] 500 mg PO TID 7 Days #21 cap 10/30/19 [Rx] guaiFENesin [Mucinex] 600 mg PO BID 10/30/19 [History Confirmed 10/30/19] PMH/Surg Hx/FS Hx/Imm Hx Endocrine/Hematology History: Denies: Hx Diabetes, Hx Thyroid Disease Cardiovascular History: Reports: Hx Hypertension Denies: Hx Pacemaker/ICD Respiratory History: Reports: Hx Asthma, Hx Chronic Obstructive Pulmonary Disease (COPD), Hx Sleep Apnea - ? GI History: Reports: Hx Gastroesophageal Reflux Disease, Hx Irritable Bowel, Other GI Disorders - UMBILICAL HERNIA Denies: Hx Ulcer History: Denies: Hx Renal Disease Musculoskeletal History: Reports: Hx Arthritis - GENERALIZED OSTEOARTHRITIS, Hx Tendonitis - BILAT. HANDS Denies: Hx Rheumatoid Arthritis Sensory History: Reports: Hx Cataracts - REMOVED, Hx Contacts or Glasses Denies: Hx Hearing Aid Opthamlomology History: Reports: Hx Cataracts - REMOVED, Hx Contacts or Glasses Psychiatric History: Denies: Hx Anxiety, Hx Attention Deficit Hyperactivity Disorder, Hx Eating Disorder, Hx Depression, Hx Panic Disorder, Hx Post Traumatic Stress Disorder, Hx Inpatient Treatment, Hx Schizophrenia, Hx Bipolar Disorder, Hx Suicide Attempt, Hx of Violent Episodes Against Others, Hx Substance Abuse, Other Psychiatric Issues/Disorders - Surgical History Surgery Procedure, Year, and Place: [place] [place] [facility] [place] CHOLECYSTECTOMY,BELLY BUTTON HERNIA,PARTIAL HYSTERECT[place] [id number]. 2002[place] [place] 2003[place] [place]INFECTED MESH-T[place] [place] [place] TRIGGER FINGER RIGHT HAND/CARPAL TUNNEL RIGHT HAND Hx Anesthesia Reactions: No Infectious Disease History: No Infectious Disease History: Denies: Hx Clostridium Difficile, Hx Hepatitis, Hx Human Immunodeficiency Virus (HIV), Hx Shingles, Hx Tuberculosis, Hx Known/Suspected VRE, Hx Known/ Suspected VRSA, History Other Infectious Disease, Traveled Outside the [place] in Last 30 Days - Family History Known Family History: Positive: Cardiac Disease, Hypertension - Social History Alcohol Use: Rare Hx Substance Use: No Substance Use Type: Reports: None Hx Tobacco Use: No Smoking Status (MU): Never Smoked Tobacco Have You Smoked in the Last Year: No Review of Systems Negative: Fever Negative: Abdominal Pain, Vomiting, Nausea Positive: urgency - urination . Negative: hematuria Positive: Other - right lower back pain All Other Systems Reviewed And Are Negative: Yes Physical Exam - Summary Physical Exam Summary: Constitutional: Well-developed, Well-nourished, Alert. (-) Distressed Skin: Warm, Dry HENT: Normocephalic; Atraumatic Eyes: Conjunctiva normal Neck: Musculoskeletal ROM normal neck. (-) JVD, (-) Stridor, (-) Tracheal deviation Cardio: Rhythm regular, rate normal, Heart sounds normal; Intact distal pulses; The pedal pulses are 2+ and symmetric. Radial pulses are 2+ and symmetric. (-) Murmur Pulmonary/Chest wall: Effort normal. (-) Respiratory distress, (-) Wheezes, (-) Rales Abd: Soft, Right flank tenderness and ventral abdominal hernia noted, (-) Distension, (-) Guarding, (-) Rebound Musculoskeletal: (-) Edema Lymph: (-) Cervical adenopathy Neuro: Alert, Oriented x3 Psych: Mood and affect Normal Triage Information Reviewed: Yes Vital Signs On Initial Exam: Initial Vitals Temp Pulse Resp BP Pulse Ox 98.3 F 69 18 139/71 93 10/30/19 17:43 10/30/19 17:43 10/30/19 17:43 10/30/19 17:43 10/30/19 17:43 Vital Signs Reviewed: Yes Procedures - Sedation Patient Received Moderate/Deep Sedation with Procedure: No Diagnostics - Vital Signs Vital Signs Temp Pulse Resp BP Pulse Ox 10/30/19 20:10 97.6 F 64 18 118/61 97 10/30/19 19:30 70 112/53 95 10/30/19 19:00 72 147/60 96 10/30/19 17:43 98.3 F 69 18 139/71 93 - Laboratory Lab Results: Lab Results 10/30/19 10/30/19 10/30/19 Range/Units 18:33 18:33 Unknown WBC 7.1 (3.5-10.8) 10^3/uL RBC 4.70 (3.70-4.87) 10^6 /uL Hgb 14.5 (12.0-16.0) g/dL Hct 41 (35-47) % MCV 87 (80-97) fL MCH 31 (27-31) pg MCHC 35 (31-36) g/dL RDW 14 (10-15) % Plt Count 173 (150-450) 10^3/uL MPV 8.2 (7.4-10.4) fL Neut % (Auto) 65.8 % Lymph % (Auto) 23.4 % Bond % (Auto) 6.7 % Eos % (Auto) 3.3 % Baso % (Auto) 0.8 % Absolute Neuts (auto) 4.7 (1.5-7.7) 10^3/ul Absolute Lymphs (auto) 1.7 (1.0-4.8) 10^3/ul Absolute Monos (auto) 0.5 (0-0.8) 10^3/ul Absolute Eos (auto) 0.2 (0-0.6) 10^3/ul Absolute Basos (auto) 0.1 (0-0.2) 10^3/ul Absolute Nucleated RBC 0.0 10^3/ul Nucleated RBC % 0.0 Sodium 139 (135-145) mmol/L Potassium 3.8 (3.5-5.0) mmol/L Chloride 106 (101-111) mmol/L Carbon Dioxide 26 (22-32) mmol/L Anion Gap 7 (2-11) mmol/L BUN 14 (6-24) mg/dL Creatinine 0.80 (0.51-0.95) mg/dL Est GFR ( Amer) 84.2 (>60) Est GFR (Non-Af Amer) 69.6 (>60) BUN/Creatinine Ratio 17.5 (8-20) Glucose 89 (70-100) mg/dL Calcium 9.4 (8.6-10.3) mg/dL Urine Color Yellow Urine Appearance Clear Urine pH 7.0 (5-9) Ur Specific [place] 1.002 L (1.010-1.030) Urine Protein Negative (Negative) Urine Ketones Negative (Negative) Urine Blood Negative (Negative) Urine Nitrate Negative (Negative) Urine Bilirubin Negative (Negative) Urine Urobilinogen Negative (Negative) Ur Leukocyte Esterase Trace A (Negative) Urine WBC (Auto) 1+(6-10/hpf) A (Absent) Urine RBC (Auto) Trace(0-2/hpf) (Absent) Urine Bacteria Absent (Absent) Urine Glucose Negative (Negative) Result Diagrams: 10/30/19 18:33 10/30/19 18:33 Lab Statement: Any lab studies that have been ordered have been reviewed, and results considered in the medical decision making process. - Ultrasound RENAL US Ultrasound Interpretation Completed By: Radiologist Summary of Ultrasound Findings: IMPRESSION: No hydronephrosis or stones involving right kidney. THIS REPORT WAS REVIEWED BY ED PHYSICIAN. GIGU Course/Dx - Course Course Of Treatment: Patient is a 79 y/o F presenting to [facility] with complaints of lower right back pain and increased urgency to urinate. Sx have been present for the past few days. Fever, N/V, abdominal pain, hematuria are denied. She notes Hx of UTIs and kidney infections. Patient reports that this presentation is similar to prior episodes of UTIs. However, the back pain is more severe with this current episode. She notes that she has been treated with Keflex for prior UTIs. Patient has Hx of ventral hernia and wears a binder for this. Legs are swollen, but the patient attributes this to her lymphedema. No Hx of kidney stones noted. On physical exam, right flank tenderness and ventral abdominal hernia are noted. Bloodwork was WNL. UA showed trace leukocyte esterase, 1+ WBC , and trace RBC. During ED course, patient received Ceftriaxone 1000 mg and lidocaine 3.6 mL. Renal US was reviewed and no obvious abnormal findings noted, pending official report. Patient was discharged to home with Keflex prescription and PCP followup. RENAL US IMPRESSION: No hydronephrosis or stones involving right kidney. - Diagnoses Provider Diagnoses: UTI (urinary tract infection) Discharge ED - Sign-Out/Discharge Documenting (check all that apply): Patient Departure - discharge - Discharge Plan Condition: Stable Disposition: HOME Prescriptions: Cephalexin CAP* [Keflex CAP*] 500 mg PO TID 7 Days #21 cap Patient Education Materials: Urinary Tract Infection in Women (ED) Referrals: Vicenta Ellison MD [Primary Care Provider] - 2 Days Additional Instructions: PLEASE RETURN TO ED FOR ANY NEW OR CONCERNING SYMPTOMS. PLEASE FOLLOW UP WITH YOUR PRIMARY CARE PHYSICIAN WITHIN TWO DAYS. - Billing Disposition and Condition Condition: STABLE Disposition: Home - Attestation Statements Document Initiated by Scribe: Yes Documenting Scribe: FRED JANE Provider For Whom Scribe is Documenting (Include Credential): DARSHANA SLOAN DO Scribe Attestation: IFRED, scribed for DARSHANA SLOAN DO on 10/30/19 at 2146. Scribe Documentation Reviewed: Yes Provider Attestation: The documentation as recorded by the FRED lr accurately reflects the service I personally performed and the decisions made by me, DARSHANA SLOAN DO Status of Scribe Document: Viewed
== END 2019-10-30 20:10 | disposition home or self-care (01) ==
LOC: ED 17:24
DX: N39.0 Urinary tract infection, site not specified (principal); I10 Essential (primary) hypertension; J44.9 Chronic obstructive pulmonary disease, unspecified; K21.9 Gastro-esophageal reflux disease without esophagitis; Z98.51 Tubal ligation status; Z90.49 Acquired absence of other specified parts of digestive tract; Z90.710 Acquired absence of both cervix and uterus; Z96.653 Presence of artificial knee joint, bilateral; Z96.641 Presence of right artificial hip joint; Z79.899 Other long term (current) drug therapy; Z88.8 Allergy status to other drugs, medicaments and biological substances; Z88.3 Allergy status to other anti-infective agents; Z91.041 Radiographic dye allergy status
CPT/HCPCS: 36415; 76775; 80048; 81003; 81015; 85025; 87077; 87086; 87186; 96372; 99283; J0696

== ENCOUNTER 2022-01-30 16:00 | Inpatient (IN) ==
[2022-01-30] MEDS ORDERED: Ondansetron ODT 4 mg TAB 4 MG TAB PO ONE (16:35)
[2022-01-30 18:53] LABS: ABS Eosinophils 0.1 10^3/ul (0-0.6); ABS Lymphocytes 0.8 10^3/ul (1.0-4.8); ABS Monocytes 0.7 10^3/ul (0-0.8); ABS Neutrophils 11.6 10^3/ul (1.5-7.7); Eosinophil % 0.6 %; Hematocrit 46 % (35-47); Hemoglobin 15.1 g/dL (12.0-16.0); Lymphocyte % 5.9 %; Mean Corpuscular HGB Conc 33 g/dL (31-36); Mean Corpuscular Hemoglobin 30 pg (27-31); Mean Corpuscular Volume 90 fL (80-97); Mean Platelet Volume 7.9 fL (7.4-10.4); Nucleated Red Blood Cells % 0.1; Platelet Count 173 10^3/uL (150-450); Red Blood Count 5.07 10^6 /uL (3.70-4.87); Red Cell Distribution Width 14 % (10-15); White Blood Count 13.1 10^3/uL (3.5-10.8)
[2022-01-30 19:29] LABS: Albumin 3.5 g/dL (3.2-5.2); C Reactive Protein 15.66 mg/L (<8.01); Calcium 8.8 mg/dL (8.6-10.3); Globulin 3.4 g/dL (2-4); Potassium 3.7 mmol/L (3.5-5.0); Total Bilirubin 0.6 mg/dL (0.2-1.0); Total Protein 6.9 g/dL (6.4-8.9); eGFR CKD-EPI 87.9 (>60)
[2022-01-30] MEDS ORDERED: Ondansetron 4 mg VIAL 2 MG/ML 2 ml VIAL IV PRN (22:37)
[2022-01-30] MEDS ORDERED: Levalbuterol 1.25MG/0.5ML NEB.SOL INH PRN (22:55)
[2022-01-30] MEDS ORDERED: Lactated Ringers 1000 ml BAG 1,000 ML IV ONE (22:55)
[2022-01-30] MEDS ORDERED: Enoxaparin 40 MG/0.4 ML SYR SUBCUT SCH (23:00)
[2022-01-30] MEDS ORDERED: Acetaminophen IV 1 GM/100ML 100 ML IV PRN (23:58)
[2022-01-31 00:31] LABS: Urine Appearance Turbid; Urine Bilirubin Negative (Negative); Urine Blood Negative (Negative); Urine Color Yellow; Urine Glucose Negative (Negative); Urine Ketones Negative (Negative); Urine Nitrite Positive (Negative); Urine Protein 1+(30 mg/dL) (Negative); Urine Specific Gravity 1.028 (1.002-1.030); Urine Urobilinogen Negative (Negative)
[2022-01-31 00:43] LABS: Urine Amorphous Crystals Present (Absent); Urine Bacteria 1+ (Absent); Urine Red Blood Cell 2+(6-10/hpf) (Absent); Urine Squamous Epithelial Cell Present (Absent); Urine White Blood Cell Absent (Absent)
[2022-01-31] MEDS: Prochlorperazine 5 mg/ml 2 ml VIAL (10 mg) IV PRN ×2 (04:24→20:32)
[2022-01-31 05:32] LABS: ABS Monocytes 1.2 10^3/ul (0-0.8); ABS Neutrophils 16.3 10^3/ul (1.5-7.7); Eosinophil % 0.1 %; Hematocrit 42 % (35-47); Hemoglobin 13.9 g/dL (12.0-16.0); Lymphocyte % 5.3 %; Mean Corpuscular HGB Conc 33 g/dL (31-36); Mean Corpuscular Hemoglobin 29 pg (27-31); Mean Corpuscular Volume 88 fL (80-97); Mean Platelet Volume 8.2 fL (7.4-10.4); Platelet Count 151 10^3/uL (150-450); Red Blood Count 4.75 10^6 /uL (3.70-4.87); Red Cell Distribution Width 14 % (10-15); White Blood Count 18.6 10^3/uL (3.5-10.8)
[2022-01-31 05:39] LABS: INR 1.27 (0.86-1.15)
[2022-01-31 06:02] LABS: Albumin 3.2 g/dL (3.2-5.2); Albumin/Globulin Ratio 1.1 (1-3); Calcium 8.3 mg/dL (8.6-10.3); Globulin 2.9 g/dL (2-4); Potassium 3.5 mmol/L (3.5-5.0); Total Bilirubin 1.1 mg/dL (0.2-1.0); Total Protein 6.1 g/dL (6.4-8.9); eGFR CKD-EPI 79.7 (>60)
[2022-01-31] MEDS ORDERED: MOMETASONE 0.1% TOPICAL SCH (09:00)
[2022-01-31] MEDS: Mometasone/Formoter 200/5 MDI INH SCH ×2 (09:05→19:41)
[2022-01-31] MEDS: SPIRIVA Respimat (tiotropium) 2.5 mcg/inh Inhaler INH SCH (09:06)
[2022-01-31] MEDS ORDERED: Piperacillin/Tazobac ADVAN 3.375 GM in NS 0.9% 100 ml BAG 100 ML IV ONE (09:11)
[2022-01-31] MEDS ORDERED: Zosyn per Pharmacy NOTE FOLLOW UP SCH (10:00)
[2022-01-31] MEDS: ZOSYN 3.375 GM Q8H per EXTENDED INFUSION IV SCH ×2 (18:47→23:18)
[2022-01-31] MEDS: Heparin 5000 UNITS/ML 1 mL VIAL SUBCUT SCH (20:33)
[2022-01-31] MEDS: NS 0.9% 1000 ml BAG 1,000 ML IV SCH (22:08)
[2022-02-01] MEDS: Heparin 5000 UNITS/ML 1 mL VIAL SUBCUT SCH ×3 (06:18→21:33)
[2022-02-01 06:42] LABS: ABS Eosinophils 0.1 10^3/ul (0-0.6); ABS Neutrophils 10.6 10^3/ul (1.5-7.7); Eosinophil % 0.7 %; Hematocrit 42 % (35-47); Hemoglobin 14.1 g/dL (12.0-16.0); Lymphocyte % 7.5 %; Mean Corpuscular HGB Conc 34 g/dL (31-36); Mean Corpuscular Hemoglobin 30 pg (27-31); Mean Corpuscular Volume 89 fL (80-97); Mean Platelet Volume 8.1 fL (7.4-10.4); Platelet Count 150 10^3/uL (150-450); Red Blood Count 4.76 10^6 /uL (3.70-4.87); Red Cell Distribution Width 14 % (10-15); White Blood Count 12.7 10^3/uL (3.5-10.8)
[2022-02-01 07:15] LABS: Calcium 8.3 mg/dL (8.6-10.3); Globulin 2.9 g/dL (2-4); Magnesium 1.8 mg/dL (1.9-2.7); Potassium 3.6 mmol/L (3.5-5.0); Total Protein 5.9 g/dL (6.4-8.9); eGFR CKD-EPI 58.7 (>60)
[2022-02-01] MEDS ORDERED: Magnesium Sulfate 2 gm BAG 2 GM/50 ML BAG IVPB ONE (08:23)
[2022-02-01] MEDS: SPIRIVA Respimat (tiotropium) 2.5 mcg/inh Inhaler INH SCH (08:25)
[2022-02-01] MEDS: Mometasone/Formoter 200/5 MDI INH SCH ×2 (08:25→19:46)
[2022-02-01] MEDS: NS 0.9% 1000 ml BAG 1,000 ML IV SCH ×2 (09:51→23:52)
[2022-02-01] MEDS ORDERED: Magnesium Sulfate 1 GM IV 1 GM/100 ML BAG IV ONE (10:30)
[2022-02-01] MEDS: ZOSYN 3.375 GM Q8H per EXTENDED INFUSION IV SCH ×3 (13:22→21:33)
[2022-02-02 05:34] LABS: ABS Eosinophils 0.3 10^3/ul (0-0.6); ABS Monocytes 0.6 10^3/ul (0-0.8); ABS Neutrophils 6.6 10^3/ul (1.5-7.7); Eosinophil % 3.4 %; Hematocrit 39 % (35-47); Lymphocyte % 11.7 %; Mean Corpuscular HGB Conc 33 g/dL (31-36); Mean Corpuscular Hemoglobin 30 pg (27-31); Mean Corpuscular Volume 89 fL (80-97); Mean Platelet Volume 8.4 fL (7.4-10.4); Platelet Count 136 10^3/uL (150-450); Red Blood Count 4.38 10^6 /uL (3.70-4.87); Red Cell Distribution Width 14 % (10-15); White Blood Count 8.5 10^3/uL (3.5-10.8)
[2022-02-02 05:50] LABS: Calcium 7.3 mg/dL (8.6-10.3); Potassium 3.3 mmol/L (3.5-5.0)
[2022-02-02 05:55] LABS: eGFR CKD-EPI 89.2 (>60)
[2022-02-02] MEDS: ZOSYN 3.375 GM Q8H per EXTENDED INFUSION IV SCH ×3 (06:04→21:11)
[2022-02-02] MEDS: Heparin 5000 UNITS/ML 1 mL VIAL SUBCUT SCH ×3 (06:04→21:09)
[2022-02-02] MEDS: SPIRIVA Respimat (tiotropium) 2.5 mcg/inh Inhaler INH SCH (08:30)
[2022-02-02] MEDS: Mometasone/Formoter 200/5 MDI INH SCH ×2 (08:31→20:03)
[2022-02-02] MEDS: NS 0.9% 1000 ml BAG 1,000 ML IV SCH (13:05)
[2022-02-03] MEDS: ZOSYN 3.375 GM Q8H per EXTENDED INFUSION IV SCH (05:43)
[2022-02-03] MEDS: Heparin 5000 UNITS/ML 1 mL VIAL SUBCUT SCH (06:26)
[2022-02-03] MEDS: SPIRIVA Respimat (tiotropium) 2.5 mcg/inh Inhaler INH SCH (07:08)
[2022-02-03] MEDS: Mometasone/Formoter 200/5 MDI INH SCH (07:09)
[2022-02-03 09:24] LABS: Calcium 7.8 mg/dL (8.6-10.3); Magnesium 1.9 mg/dL (1.9-2.7); Potassium 3.3 mmol/L (3.5-5.0); eGFR CKD-EPI 91.2 (>60)
[2022-02-03] MEDS ORDERED: Potassium Chloride LIQUID 20 MEQ/15 ML LIQUID PO ONE (11:11)
[2022-02-03] MEDS: Prochlorperazine 5 mg/ml 2 ml VIAL (10 mg) IV PRN (11:12)
[2022-02-03 12:13] VITALS: BP 97/47
== END 2022-02-03 13:00 | disposition home or self-care (01) | DRG 389 ==
LOC: EDHOLD 16:00 → ED 16:00 → SUATTDRO 23:10 → MEDTELE 01-31 00:13
PROVIDERS: ADMIT Internal Medicine; ATTEND Student in an Organized Health Care Education/Training Program

== ENCOUNTER 2024-04-16 20:33 | Inpatient (IN) ==
[2024-04-16] MEDS: Acetaminophen IV 1 GM/100ML 1,000 MG/100 ML BAG IV ONE (23:23)
[2024-04-16 23:45] LABS: ABS Basophils 0.1 10^3/uL (0.0-0.1); ABS Eosinophils 0.1 10^3/uL (0.0-0.5); ABS Lymphocytes 1.7 10^3/uL (1.0-4.8); ABS Monocytes 0.8 10^3/uL (0.0-0.9); ABS Neutrophils 7.4 10^3/uL (1.5-7.6); ABS Nucleated RBC 0.01 10^3/ul; Eosinophil % 0.6 %; Hematocrit 45.7 % (35-45); Hemoglobin 15.2 g/dL (11.5-14.3); Lymphocyte % 16.9 %; Mean Corpuscular Hemoglobin 29.8 pg (27-33); Mean Corpuscular Hgb Conc 33.3 g/dL (31-36); Mean Corpuscular Volume 89.5 fL (80-97); Mean Platelet Volume 8.8 fL (7.5-11.2); Nucleated Red Blood Cells % 0.1 %/100WBC (0.0-0.8); Platelet Count 196 10^3/uL (150-450); Red Blood Count 5.11 10^6/uL (3.63-4.92); Red Cell Distribution Width 14.1 % (12-17)
[2024-04-17 01:00] LABS: ALT 15 U/L (7-52); Albumin 3.7 g/dL (3.2-5.2); Albumin/Globulin Ratio 1.1 (1-3); Alkaline Phosphatase 127 U/L (35-149); Anion Gap 11 mmol/L (2-16); Blood Urea Nitrogen 16 mg/dL (6-24); C Reactive Protein 11.51 mg/L (<8.01); CO2 Carbon Dioxide 25 mmol/L (22-32); Calcium 8.9 mg/dL (8.6-10.3); Chloride 102 mmol/L (101-111); Creatinine, Serum 0.74 mg/dL (0.51-0.95); Globulin 3.3 g/dL (2-4); Glucose 110 mg/dL (70-100); Lipase < 10 U/L (11.0-82.0); Sodium 138 mmol/L (135-145); Total Bilirubin 0.8 mg/dL (0.2-1.0); eGFR CKD-EPI 80.7 (>60)
[2024-04-17] MEDS: Morphine 4 MG/ML VIAL (1 ml) IV ONE (01:06)
[2024-04-17] MEDS: Ondansetron 4 mg VIAL 2 MG/ML 2 ml VIAL IV ONE (01:32)
[2024-04-17] MEDS: Lactated Ringers 1000 ml BAG 1,000 ML IV ONE ×2 (01:37→03:35)
[2024-04-17 01:38] LABS: Urine Appearance Turbid; Urine Bilirubin Negative (Negative); Urine Blood Negative (Negative); Urine Color Yellow; Urine Glucose Negative (Negative); Urine Ketones Negative (Negative); Urine Nitrite Negative (Negative); Urine Protein Trace (Negative); Urine Specific Gravity 1.027 (1.002-1.030); Urine Urobilinogen 1+ (Negative); Urine pH 5.5 (5.0-8.0)
[2024-04-17] MEDS ORDERED: Ondansetron 4 mg VIAL 2 MG/ML 2 ml VIAL IV PRN (02:04)
[2024-04-17 03:09] LABS: Magnesium 1.8 mg/dL (1.9-2.7)
[2024-04-17] MEDS ORDERED: NON FORMULARY MED (Albuterol-Budesonide [Airsupra] 90-80 mcg/actuation HFA aerosol inhaler INH PRN (03:27)
[2024-04-17] MEDS ORDERED: Morphine 2 MG/ML SYRINGE IV PRN ×2 (03:57→03:58)
[2024-04-17] MEDS ORDERED: Acetaminophen IV 1 GM/100ML 1,000 MG/100 ML BAG IV PRN (03:57)
[2024-04-17 04:17] LABS: Potassium Redraw 4.3 mmol/L (3.5-5.0)
[2024-04-17] MEDS: Magnesium Sulfate 2 gm BAG 2 GM/50 ML BAG IVPB ONE (04:57)
[2024-04-17] MEDS ORDERED: Albuterol HFA INHALER 8 gm MDI INH PRN (06:00)
[2024-04-17 07:22] LABS: ABS Eosinophils 0.1 10^3/uL (0.0-0.5); ABS Lymphocytes 1.7 10^3/uL (1.0-4.8); ABS Monocytes 0.7 10^3/uL (0.0-0.9); ABS Neutrophils 5.6 10^3/uL (1.5-7.6); Eosinophil % 1.4 %; Hematocrit 41.5 % (35-45); Hemoglobin 14.2 g/dL (11.5-14.3); Lymphocyte % 20.6 %; Mean Corpuscular Hemoglobin 30.5 pg (27-33); Mean Corpuscular Hgb Conc 34.2 g/dL (31-36); Mean Corpuscular Volume 88.9 fL (80-97); Mean Platelet Volume 8.3 fL (7.5-11.2); Platelet Count 191 10^3/uL (150-450); Red Blood Count 4.67 10^6/uL (3.63-4.92); Red Cell Distribution Width 14.4 % (12-17); White Blood Count 8.1 10^3/uL (3.8-11.8)
[2024-04-17] MEDS: PTO:BUDESONIDE/GLYCOPYR/FORMOTEROL MDI (NF) INH SCH ×2 (08:37→18:31)
[2024-04-17 08:43] LABS: Creatinine, Serum 0.72 mg/dL (0.51-0.95); Magnesium 2.3 mg/dL (1.9-2.7); Potassium 4.1 mmol/L (3.5-5.0); eGFR CKD-EPI 83.4 (>60)
[2024-04-17] MEDS: Enoxaparin 30 MG/0.3 ML SYR SUBCUT SCH (10:56)
[2024-04-18 09:51] VITALS: BP 120/59
== END 2024-04-18 12:53 | disposition home or self-care (01) | DRG 390 ==
LOC: ED 20:33 → EDHOLD 20:33 → SUATTDRO 04-17 02:04 → MED 04-17 06:55
PROVIDERS: ADMIT Internal Medicine; ATTEND Family Medicine